=== PATIENT | female | born 2005 | race African-American/Black ===

== ENCOUNTER 2023-06-16 09:04 | Outpatient (REF) | payer OTHER, SELFPAY ==
[2023-06-16 10:47] LABS: Estimated Average Glucose 217 mg/dL; Hemoglobin A1c % 9.2 %
[2023-06-16 11:02] LABS: Anion Gap 17 (12-20); Blood Urea Nitrogen 10 mg/dL (9-16); Calcium 9.6 mg/dL (8.4-10.2); Carbon Dioxide 25 mmol/L (22-29); Chloride 103 mmol/L (96-108); Estimated Glomerular Filt Rate > 60; Glucose Random 297 mg/dL (60-115); Potassium 3.6 mmol/L (3.3-5.1); Sodium 141 mmol/L (135-145)
== END 2023-06-16 09:05 | disposition home or self-care (01) ==
LOC: HO.LAB 09:04
PROVIDERS: PCP Family Medicine Adult Medicine; Visit Provider Family Medicine Adult Medicine
DX: E11.9 Type 2 diabetes mellitus without complications (principal)
CPT/HCPCS: 36415; 80048; 83036